=== PATIENT | female | born 1940 | race Caucasian/White ===

== ENCOUNTER 2017-09-29 21:59 | Inpatient (IN) | payer OTHER, MEDICARE ==
[2017-09-29] MEDS: IOHEXOL 350 MG/ML 10 ML VIAL (for RAD DIAG) IVCONTRAST (22:00)
[2017-09-29] MEDS: SODIUM CHLOR 0.9% 1000 ML INJ 1,000 ML IV (22:27)
[2017-09-29] MEDS: LABETALOL HCL 100 MG/20 ML VIAL IV PUSH ×2 (22:31→23:11)
[2017-09-29 22:42] LABS: AUTOMATED NEUTROPHIL # 6.7 TH/MM3 (1.8-7.7); BASOPHIL % 0.4 % (0.0-2.0); EOSINOPHIL # 0.2 TH/MM3 (0-0.4); EOSINOPHIL % 1.9 % (0.0-4.0); HEMATOCRIT 37.1 % (35.0-46.0); HEMO FLAGS DIFF FINAL; HEMOGLOBIN 12.8 GM/DL (11.6-15.3); LYMPH % 24.8 % (9.0-44.0); LYMPHOCYTE # 2.6 TH/MM3 (1.0-4.8); MEAN CELL VOLUME 87.9 FL (80.0-100.0); MEAN CORPUSCULAR HEMOGLOBIN 30.2 PG (27.0-34.0); MEAN CORPUSCULAR HGB CONC 34.4 % (32.0-36.0); MEAN PLATELET VOLUME 9.9 FL (7.0-11.0); MONO % 9.3 % (0.0-8.0); NEUT % 63.6 % (16.0-70.0); PLATELET COUNT 182 TH/MM3 (150-450); RED BLOOD COUNT 4.22 MIL/MM3 (4.00-5.30); RED CELL DISTRIBUTION WIDTH 13.4 % (11.6-17.2); WHITE BLOOD COUNT 10.5 TH/MM3 (4.0-11.0)
[2017-09-29 22:50] LABS: APTT (PATIENT) 27.1 SEC (24.3-30.1); FIBRINOGEN 346 mg/dL (227-377); PROTHROMBIN TIME - PATIENT 10.6 SEC (9.8-11.6)
[2017-09-29 23:02] LABS: I-STAT CHLORIDE 105 MMOL/L (102-111); I-STAT POTASSIUM 3.5 MMOL/L (3.6-5.0); I-STAT SODIUM 142 MMOL/L (137-144)
[2017-09-29 23:04] LABS: I-STAT BLOOD UREA NITROGEN 15 MG/DL (5-21); I-STAT CREATININE 0.7 MG/DL (0.6-1.3); I-STAT GLUCOSE 116 MG/DL (68-110); I-STAT HEMOGLOBIN (CALC.) 12.6 G/DL (11.6-15.3)
[2017-09-29 23:05] LABS: TROPONIN I LESS THAN 0.02 NG/ML (0.02-0.05)
[2017-09-29 23:06] LABS: CREATINE KINASE 48 U/L (26-192)
[2017-09-30] MEDS: ASPIRIN 300 MG SUPP RECTAL (00:14)
[2017-09-30] MEDS: niCARdipine INJ 25 MG in SODIUM CHLOR 0.9% 250 ML INJ 240 ML IV (00:16)
[2017-09-30] MEDS ORDERED: LABETALOL HCL 100 MG/20 ML VIAL IV PUSH (00:30)
[2017-09-30] MEDS ORDERED: SODIUM CHLORIDE 0.9% FLUSH 10 ML FLUSH IV FLUSH (00:30)
[2017-09-30] MEDS ORDERED: NALOXONE HCL 0.4 MG/ML AMP IV PUSH (00:30)
[2017-09-30 00:31] LABS: AMORPHOUS SEDIMENT, URINE RARE; BILIRUBIN, URINE NEG (NEG); BLOOD, URINE NEG (NEG); GLUCOSE,URINE NEG (NEG); KETONE, URINE TRACE mg/dL (NEG); NITRITE,URINE NEG (NEG); URINE COLOR LIGHT-YELLOW (YELLW/STRAW); URINE LEUKOCYTE ESTERASE TRACE (NEG)
[2017-09-30 00:34] LABS: AMPHETAMINE, URINE NEG (NEG); BARBITURATES, URINE NEG (NEG); BENZODIAZEPINE,URINE NEG (NEG); CANNABINOIDS, URINE NEG (NEG); COCAINE, URINE NEG (NEG)
[2017-09-30] MEDS: SODIUM CHLOR 0.9% 1000 ML INJ 1,000 ML IV ×2 (11:54→20:13)
[2017-09-30] MEDS: ASPIRIN EC 325 MG TABEC PO (11:54)
[2017-09-30] MEDS: SODIUM CHLORIDE 0.9% FLUSH 10 ML FLUSH IV FLUSH ×2 (11:55→20:11)
[2017-09-30] MEDS ORDERED: GLUCAGON 1 MG/ML VIAL OTHER (13:30)
[2017-09-30] MEDS ORDERED: DEXTROSE 50% IN WATER 50 ML VIAL(D50) IV PUSH (13:30)
[2017-09-30] MEDS: LORazepam 2 MG/ML VIAL IV PUSH (15:30)
[2017-09-30] MEDS: GADODIAMIDE PF 287 MG/ML 5 ML VIAL (for RAD MRI) IV PUSH (16:22)
[2017-09-30] MEDS: WARFARIN SOD 5 MG TAB PO (18:37)
[2017-09-30] MEDS: INSULIN ASPART SUPPLEMENTAL SCALE SQ ×2 (18:37→20:12)
[2017-09-30] MEDS: HEPARIN SODIUM - SQ 10,000 UNITS/ML VIAL SQ (20:11)
[2017-09-30] MEDS: risperiDONE 0.5 MG TAB PO (20:11)
[2017-09-30 20:36] LABS: WESTERGREN SEDIMENTATION RATE 31 mm/hr (0-30)
[2017-09-30 20:51] LABS: FREE T4 1.21 NG/DL (0.76-1.46)
[2017-09-30] MEDS: HALOPERIDOL LACTATE 5 MG/ML AMP IV PUSH (21:37)
[2017-09-30] MEDS: hydrALAZINE HCL 20 MG/ML VIAL IV PUSH (23:38)
[2017-10-01] MEDS: HEPARIN SODIUM - SQ 10,000 UNITS/ML VIAL SQ (05:35)
[2017-10-01 07:20] LABS: AUTOMATED NEUTROPHIL # 10.2 TH/MM3 (1.8-7.7); BASOPHIL % 0.3 % (0.0-2.0); EOSINOPHIL % 0.2 % (0.0-4.0); HEMATOCRIT 33.9 % (35.0-46.0); HEMO FLAGS DIFF FINAL; HEMOGLOBIN 11.3 GM/DL (11.6-15.3); LYMPH % 16.9 % (9.0-44.0); LYMPHOCYTE # 2.3 TH/MM3 (1.0-4.8); MEAN CORPUSCULAR HEMOGLOBIN 29.3 PG (27.0-34.0); MEAN CORPUSCULAR HGB CONC 33.3 % (32.0-36.0); MONO % 7.2 % (0.0-8.0); NEUT % 75.4 % (16.0-70.0); PLATELET COUNT 183 TH/MM3 (150-450); RED BLOOD COUNT 3.85 MIL/MM3 (4.00-5.30); RED CELL DISTRIBUTION WIDTH 13.8 % (11.6-17.2); WHITE BLOOD COUNT 13.5 TH/MM3 (4.0-11.0)
[2017-10-01 07:34] LABS: INTERNATIONAL NORMALIZED RATIO 1.2 RATIO; PROTHROMBIN TIME - PATIENT 12.6 SEC (9.8-11.6)
[2017-10-01] MEDS: INSULIN ASPART SUPPLEMENTAL SCALE SQ ×4 (08:00→20:06)
[2017-10-01 08:33] LABS: ANION GAP 11 MEQ/L (5-15); BICARBONATE 25.2 MEQ/L (21.0-32.0); BLOOD UREA NITROGEN 10 MG/DL (7-18); CALCIUM 8.3 MG/DL (8.5-10.1); CHLORIDE 104 MEQ/L (98-107); CHOLESTEROL 122 MG/DL (120-200); CREATININE 0.73 MG/DL (0.50-1.00); GLOMERULAR FILTRATION RATE 77 ML/MIN (>89); GLUCOSE,RANDOM 183 MG/DL (74-106); SODIUM (NA) 140 MEQ/L (136-145); TRIGLYCERIDES 69 MG/DL (42-150)
[2017-10-01 08:36] LABS: CHOLESTEROL/ HDL RATIO 2.62 RATIO; HDL CHOLESTEROL 46.4 MG/DL (40.0-60.0); LDL CHOLESTEROL 62 MG/DL (0-99)
[2017-10-01] MEDS: ASPIRIN EC 325 MG TABEC PO (10:12)
[2017-10-01] MEDS: SODIUM CHLORIDE 0.9% FLUSH 10 ML FLUSH IV FLUSH ×2 (10:13→20:05)
[2017-10-01] MEDS ORDERED: HALOPERIDOL LACTATE 5 MG/ML AMP IM (12:00)
[2017-10-01] MEDS ORDERED: HALOPERIDOL 1 MG TAB PO (12:00)
[2017-10-01 13:32] LABS: I-STAT POTASSIUM 3.2 MMOL/L (3.6-5.0); I-STAT SODIUM 140 MMOL/L (137-144)
[2017-10-01 13:33] LABS: I-STAT BLOOD UREA NITROGEN 12 MG/DL (5-21); I-STAT CHLORIDE 102 MMOL/L (102-111); I-STAT CREATININE 0.9 MG/DL (0.6-1.3); I-STAT GLUCOSE 153 MG/DL (68-110); I-STAT HEMOGLOBIN (CALC.) 11.6 G/DL (11.6-15.3)
[2017-10-01 13:35] LABS: AUTOMATED NEUTROPHIL # 8.5 TH/MM3 (1.8-7.7); BASOPHIL # 0.1 TH/MM3 (0-0.2); BASOPHIL % 0.5 % (0.0-2.0); EOSINOPHIL # 0.1 TH/MM3 (0-0.4); EOSINOPHIL % 0.7 % (0.0-4.0); HEMATOCRIT 35.6 % (35.0-46.0); HEMO FLAGS DIFF FINAL; HEMOGLOBIN 11.6 GM/DL (11.6-15.3); LYMPH % 17.7 % (9.0-44.0); LYMPHOCYTE # 2.1 TH/MM3 (1.0-4.8); MEAN CELL VOLUME 87.4 FL (80.0-100.0); MEAN CORPUSCULAR HEMOGLOBIN 28.4 PG (27.0-34.0); MEAN CORPUSCULAR HGB CONC 32.4 % (32.0-36.0); MEAN PLATELET VOLUME 9.4 FL (7.0-11.0); MONO % 9.1 % (0.0-8.0); MONOCYTE # 1.1 TH/MM3 (0-0.9); PLATELET COUNT 183 TH/MM3 (150-450); RED BLOOD COUNT 4.08 MIL/MM3 (4.00-5.30); RED CELL DISTRIBUTION WIDTH 14.1 % (11.6-17.2); WHITE BLOOD COUNT 11.7 TH/MM3 (4.0-11.0)
[2017-10-01 13:37] LABS: ANION GAP 8 MEQ/L (5-15); BLOOD UREA NITROGEN 13 MG/DL (7-18); CALCIUM 8.4 MG/DL (8.5-10.1); CHLORIDE 106 MEQ/L (98-107); GLOMERULAR FILTRATION RATE 61 ML/MIN (>89); GLUCOSE,RANDOM 149 MG/DL (74-106); POTASSIUM 3.3 MEQ/L (3.5-5.1); SODIUM (NA) 141 MEQ/L (136-145)
[2017-10-01 13:50] LABS: APTT (PATIENT) 27.5 SEC (24.3-30.1); FIBRINOGEN 407 mg/dL (227-377); INTERNATIONAL NORMALIZED RATIO 1.1 RATIO; PROTHROMBIN TIME - PATIENT 11.5 SEC (9.8-11.6)
[2017-10-01 13:58] LABS: CREATINE KINASE 595 U/L (26-192); TROPONIN I 0.23 NG/ML (0.02-0.05)
[2017-10-01 14:12] LABS: CKMB 11.8 NG/ML (0.5-3.6)
[2017-10-01] MEDS: IOHEXOL 350 MG/ML 10 ML VIAL (for RAD DIAG) IVCONTRAST (14:24)
[2017-10-01] MEDS: HEPARIN 25,000 UNITS/D5W 250ML IV (18:19)
[2017-10-01] MEDS: WARFARIN SOD 2.5 MG TAB PO (18:20)
[2017-10-01] MEDS: WARFARIN SOD 5 MG TAB PO (18:20)
[2017-10-01] MEDS: POTASSIUM CHLORIDE 25 MEQ EFFERVESCENT TAB PO (18:21)
[2017-10-01] MEDS: SODIUM CHLOR 0.9% 1000 ML INJ 1,000 ML IV (18:27)
[2017-10-02 01:24] LABS: APTT (PATIENT) 35.2 SEC (24.3-30.1)
[2017-10-02] MEDS: SODIUM CHLOR 0.9% 1000 ML INJ 1,000 ML IV (01:30)
[2017-10-02 07:55] LABS: APTT (PATIENT) 39.9 SEC (24.3-30.1); INTERNATIONAL NORMALIZED RATIO 1.2 RATIO; PROTHROMBIN TIME - PATIENT 11.9 SEC (9.8-11.6)
[2017-10-02] MEDS: INSULIN ASPART SUPPLEMENTAL SCALE SQ ×4 (08:00→20:40)
[2017-10-02] MEDS ORDERED: LISINOPRIL 20 MG TAB PO (09:00)
[2017-10-02] MEDS: SODIUM CHLORIDE 0.9% FLUSH 10 ML FLUSH IV FLUSH ×2 (09:00→20:39)
[2017-10-02] MEDS: ASPIRIN EC 325 MG TABEC PO (09:16)
[2017-10-02 11:03] LABS: BASOPHIL % 0.5 % (0.0-2.0); EOSINOPHIL # 0.2 TH/MM3 (0-0.4); EOSINOPHIL % 1.7 % (0.0-4.0); HEMATOCRIT 34.9 % (35.0-46.0); HEMO FLAGS DIFF FINAL; HEMOGLOBIN 11.5 GM/DL (11.6-15.3); LYMPH % 17.9 % (9.0-44.0); LYMPHOCYTE # 1.7 TH/MM3 (1.0-4.8); MEAN CELL VOLUME 87.9 FL (80.0-100.0); MEAN CORPUSCULAR HEMOGLOBIN 28.9 PG (27.0-34.0); MEAN CORPUSCULAR HGB CONC 32.9 % (32.0-36.0); MEAN PLATELET VOLUME 9.7 FL (7.0-11.0); MONO % 7.1 % (0.0-8.0); MONOCYTE # 0.7 TH/MM3 (0-0.9); NEUT % 72.8 % (16.0-70.0); PLATELET COUNT 182 TH/MM3 (150-450); RED BLOOD COUNT 3.97 MIL/MM3 (4.00-5.30); RED CELL DISTRIBUTION WIDTH 13.6 % (11.6-17.2); WHITE BLOOD COUNT 9.6 TH/MM3 (4.0-11.0)
[2017-10-02] MEDS: POTASSIUM CHLORIDE 25 MEQ EFFERVESCENT TAB PO (11:28)
[2017-10-02] MEDS: HEPARIN 25,000 UNITS/D5W 250ML IV (11:30)
[2017-10-02 13:21] LABS: CREATINE KINASE 617 U/L (26-192)
[2017-10-02 13:39] LABS: CKMB 7.6 NG/ML (0.5-3.6); CKMB % 1.2 % (0.0-4.0)
[2017-10-02] MEDS: WARFARIN SOD 7.5 MG TAB PO (17:59)
[2017-10-02] MEDS: POTASSIUM CHLORIDE 10 MEQ CONTROLLED RELEASE TAB PO (18:12)
[2017-10-02 21:59] LABS: APTT (PATIENT) 35.4 SEC (24.3-30.1)
[2017-10-03] MEDS: hydrALAZINE HCL 20 MG/ML VIAL IV PUSH (03:50)
[2017-10-03 04:12] LABS: APTT (PATIENT) 42.5 SEC (24.3-30.1); INTERNATIONAL NORMALIZED RATIO 1.4 RATIO; PROTHROMBIN TIME - PATIENT 14.1 SEC (9.8-11.6)
[2017-10-03] MEDS: ASPIRIN EC 325 MG TABEC PO (09:06)
[2017-10-03] MEDS: SODIUM CHLORIDE 0.9% FLUSH 10 ML FLUSH IV FLUSH ×2 (09:07→21:00)
[2017-10-03] MEDS: INSULIN ASPART SUPPLEMENTAL SCALE SQ ×4 (09:31→21:45)
[2017-10-03 10:22] LABS: RAPID PLASMA REAGIN SCREEN NON-REACTIVE (NON-REACTVE)
[2017-10-03] MEDS: HEPARIN 25,000 UNITS/D5W 250ML IV (11:49)
[2017-10-03 13:51] LABS: APTT (PATIENT) 41.5 SEC (24.3-30.1)
[2017-10-03] MEDS: WARFARIN SOD 5 MG TAB PO (15:15)
[2017-10-03] MEDS: LISINOPRIL 10 MG TAB PO (15:16)
[2017-10-03 15:59] LABS: HEMOGLOBIN A1C 7.2 % (4.3-6.0); HEMOGLOBIN A1a 1.4 %; HEMOGLOBIN A1b 2.2 %; HEMOGLOBIN Ao 81.9 %; HEMOGLOBIN LA1C 2.4 %; HEMOGLOBIN P3 4.4 %
[2017-10-03] MEDS ORDERED: WARFARIN SOD 7.5 MG TAB PO (16:00)
[2017-10-03 16:23] LABS: ANA SCREEN NEG (NEG)
[2017-10-03 17:48] LABS: ANION GAP 7 MEQ/L (5-15); BICARBONATE 25.3 MEQ/L (21.0-32.0); BLOOD UREA NITROGEN 19 MG/DL (7-18); CHLORIDE 105 MEQ/L (98-107); CREATININE 0.91 MG/DL (0.50-1.00); GLOMERULAR FILTRATION RATE 60 ML/MIN (>89); GLUCOSE,RANDOM 186 MG/DL (74-106); POTASSIUM 3.8 MEQ/L (3.5-5.1); SODIUM (NA) 137 MEQ/L (136-145)
[2017-10-04] MEDS: HEPARIN 25,000 UNITS/D5W 250ML IV (06:22)
[2017-10-04 08:59] LABS: INTERNATIONAL NORMALIZED RATIO 2.3 RATIO; PROTHROMBIN TIME - PATIENT 23.3 SEC (9.8-11.6)
[2017-10-04] MEDS: SODIUM CHLORIDE 0.9% FLUSH 10 ML FLUSH IV FLUSH ×2 (09:00→20:46)
[2017-10-04] MEDS: INSULIN ASPART SUPPLEMENTAL SCALE SQ ×4 (09:10→20:47)
[2017-10-04] MEDS: LISINOPRIL 10 MG TAB PO (09:10)
[2017-10-04] MEDS: ASPIRIN EC 325 MG TABEC PO (09:10)
[2017-10-04] MEDS ORDERED: PILL SPLITTER OTHER (14:15)
[2017-10-04] MEDS: amLODIPine BESYLATE 5 MG TAB PO (15:09)
[2017-10-05] MEDS: HEPARIN 25,000 UNITS/D5W 250ML IV (02:07)
[2017-10-05] MEDS: ACETAMINOPHEN 325 MG TAB PO (04:22)
[2017-10-05] MEDS: amLODIPine BESYLATE 5 MG TAB PO ×3 (04:22→12:58)
[2017-10-05 07:30] LABS: APTT (PATIENT) 60.4 SEC (24.3-30.1); INTERNATIONAL NORMALIZED RATIO 2.2 RATIO; PROTHROMBIN TIME - PATIENT 22.7 SEC (9.8-11.6)
[2017-10-05 07:49] LABS: THIAMINE 177 nmol/L (70-180)
[2017-10-05] MEDS: LISINOPRIL 10 MG TAB PO (07:54)
[2017-10-05] MEDS: ASPIRIN EC 325 MG TABEC PO (07:54)
[2017-10-05] MEDS: INSULIN ASPART SUPPLEMENTAL SCALE SQ ×4 (08:00→21:03)
[2017-10-05] MEDS: SODIUM CHLORIDE 0.9% FLUSH 10 ML FLUSH IV FLUSH ×2 (09:00→21:02)
[2017-10-05] MEDS: WARFARIN SOD 4 MG TAB PO (16:05)
[2017-10-05] MEDS: GLIMEPIRIDE 4 MG TAB PO (16:06)
[2017-10-05] MEDS: ENALAPRILAT 1.25 MG/ML VIAL IV PUSH (19:18)
[2017-10-06] MEDS: ENALAPRILAT 1.25 MG/ML VIAL IV PUSH ×2 (00:15→13:18)
[2017-10-06 06:43] LABS: INTERNATIONAL NORMALIZED RATIO 2.1 RATIO; PROTHROMBIN TIME - PATIENT 20.9 SEC (9.8-11.6)
[2017-10-06] MEDS: ASPIRIN EC 325 MG TABEC PO (07:42)
[2017-10-06] MEDS: LISINOPRIL 10 MG TAB PO (07:43)
[2017-10-06] MEDS: SODIUM CHLORIDE 0.9% FLUSH 10 ML FLUSH IV FLUSH (07:44)
[2017-10-06] MEDS: INSULIN ASPART SUPPLEMENTAL SCALE SQ ×2 (07:44→12:00)
[2017-10-06] MEDS: GLIMEPIRIDE 4 MG TAB PO (07:44)
[2017-10-06] MEDS: WARFARIN SOD 4 MG TAB PO (15:14)
[2017-10-07] MEDS ORDERED: LISINOPRIL 20 MG TAB PO (09:00)
== END 2017-10-06 17:00 | DRG 64 ==
LOC: NEDA 09-30 00:37 → HCIS 10-01 15:21 → N05B 10-03 13:42 → NEPE 21:59 → HCIS 09-30 02:24
PROVIDERS: Family Medicine
DX: I63.9 Cerebral infarction, unspecified (principal); G93.40 Encephalopathy, unspecified; F05 Delirium due to known physiological condition; R47.01 Aphasia; E11.9 Type 2 diabetes mellitus without complications; F03.90 Unspecified dementia, unspecified severity, without behavioral disturbance, psychotic disturbance, mood disturbance, and anxiety; H54.7 Unspecified visual loss; I10 Essential (primary) hypertension; Z86.73 Personal history of transient ischemic attack (TIA), and cerebral infarction without residual deficits; Z79.84 Long term (current) use of oral hypoglycemic drugs; Z90.710 Acquired absence of both cervix and uterus; F43.20 Adjustment disorder, unspecified; F39 Unspecified mood [affective] disorder; E87.6 Hypokalemia; Z78.1 Physical restraint status; R74.8 Abnormal levels of other serum enzymes
CPT/HCPCS: 51702; 70450; 70496; 70498; 70551; 70553; 80048; 80061; 80307; 81001; 82550; 82552; 82607; 82948; 83036; 84425; 84439; 84443; 84484; 85025; 85384; 85610; 85652; 85730; 86038; 86592; 86850; 86900; 86901; 93005; 93225; 93226; 93306; 95819; 96374; 96375; 96376; 97110-GO; 97110-GP; 97116-GP; 97162-GP; 97167-GO; 97530-GO; 97530-GP; 97535-GO; 99291-25